=== PATIENT | female | born 1970 | race African-American/Black ===

== ENCOUNTER 2017-03-13 21:05 | Emergency (ER) | payer OTHER, MEDICAID ==
[~2017-03-13] VITALS: Ht 162.6 cm; Wt 108.9 kg
[~2017-03-13 21:05] MED LIST: ACETAMINOPHEN-1 EAC1 ORAL; ADULT WAL-100 MG/5 M ORAL; ALBUTEROL SULF8.5 GM INH; AMLODIPINE BESY10 MG ORAL; AMOXICILLIN500 M1 PO; AMOXICILLIN500 MG ORAL; ASPIR 8181 MG ORAL; ATENOLOL25 MG ORAL; AZITHROMYCIN250 MG ORAL; CEPHALEXIN500 MG ORAL; CIPROFLOXACIN500 M2 ORAL; COLACE100 MG ORAL; CYCLOBENZAPRINE10 MG ORAL; GABAPENTIN100 MG ORAL; HYDROCHLOROTH12.5 MG ORAL; HYDROCHLOROTHIA25 MG ORAL; IBUPROFEN600 MG ORAL; IBUPROFEN800 MG ORAL; METFORMIN HCL500 M1 ORAL; NAPROXEN SODIU550 M1 ORAL; NORCO 5-325 TA1 EACH ORAL; PHENAZOPYRIDIN200 MG ORAL; PREDNISONE20 MG ORAL; PROMETHAZINE-C118 M1 ORAL; ZYRTEC10 MG ORAL
[2017-03-13 21:40] VITALS: BP 141/86
[2017-03-13] MEDS ORDERED: Ketorolac 30mg Inj IV ONE (22:00)
--- NOTE | 2017-03-13 22:20 | Emergency Room Report ---
History of Present Illness General Chief Complaint: Vaginal Source: Patient Present Illness HPI This is a 47-year-old female with no significant past medical history. She came in with chief complaint of vaginal bleeding. Has been ongoing for last 3 weeks. She says she goes to a to 9 pads a day. No nausea vomiting. [place] tired weak. Similar symptoms but many years ago. Doesn't think she is . No abdominal pain. No urinary complaint. Has not seen a toy assembly supervisor. She is a smoker however. Allergies: Coded Allergies: No Known Allergies (Unverified , 01/26/14) Patient History Past Medical History: see triage record, old chart reviewed Past Surgical History: other Pertinent Family History: none Social History: Reports: smoking Last Menstrual Period: jan Now: No Immunizations: other Reviewed Nursing Documentation: PMH: Agreed, PSxH: Agreed Nursing Documentation-PMH Hx Cardiac Problems: Yes - IRREG HEART BEAT Hx Hypertension: Yes Hx Pacemaker: No Hx Asthma: Yes Hx COPD: Yes Hx Diabetes: Yes Hx Cancer: No Hx Gastrointestinal Problems: No Hx Dialysis: No Hx Neurological Problems: No Hx Cerebrovascular Accident: No Hx Seizures: No Review of Systems Eye: Denies: eye pain, blurred vision ENT: Denies: ear pain, nose congestion, throat swelling Respiratory: Denies: cough, shortness of breath Cardiovascular: Denies: chest pain, palpitations Gastrointestinal: Denies: abdominal pain, diarrhea, nausea, vomiting Genitourinary: Reports: vag bleed/dc Musculoskeletal: Denies: back pain, joint pain Skin: Denies: rash Neurological: Denies: headache, numbness Endocrine: Denies: increased thirst, increased urine Hematologic/Lymphatic: Denies: easy bruising All Other Systems: negative except mentioned in HPI Physical Exam Vital Signs Date Time Temp Pulse Resp B/P (MAP) Pulse Ox O2 Delivery O2 Flow Rate FiO2 03/13/17 21:35 98.1 92 16 141/86 98 Room Air vitals normal Sp02 EP Interpretation: reviewed, normal General Appearance: well appearing, no apparent distress, alert Head: normocephalic, atraumatic Eyes: bilateral eye PERRL, bilateral eye EOMI ENT: hearing grossly normal, normal pharynx Neck: full range of motion, supple, no meningismus Respiratory: chest non-tender, lungs clear, normal breath sounds Cardiovascular #1: regular rate, rhythm, no murmur Gastrointestinal: normal bowel sounds, non tender, no mass, no organomegaly, no bruit, non-distended Genitourinary: other - Pelvic exam done with LUCAS Higuera as car repairman. External exam normal. Internal exam showed scant bleeding from the os. Mild cervical motion tenderness. Uterus is slightly enlarged. No adnexal mass. No discharge. Musculoskeletal: back normal, gait/station normal, normal range of motion Neurologic: alert, oriented x3 Psychiatric: mood/affect normal Skin: warm/dry Medical Decision Making Diagnostic Impression: Primary Impression: Dysfunctional uterine bleeding ER Course Patient with dysfunctional uterine bleeding. Hemoglobin is stable compared to 2016. No evidence of anemia. We'll discharge home with DIRECTOR LIFE followup. Lab Results Impression labs stable Last Vital Signs Date Time Temp Pulse Resp B/P (MAP) Pulse Ox O2 Delivery O2 Flow Rate FiO2 03/13/17 21:35 98.1 92 16 141/86 98 Room Air Status: improved Disposition: HOME, SELF-CARE Condition: Improved Referrals: [facility] (PCP) Additional Instructions: Followup with your DrMagdy in 7 days. You may benefit from seeing a toy assembly supervisor. Return if symptom worsen. VANESSA ELENA M.D. Mar 13, 2017 22:20
--- NOTE | 2017-03-13 22:20 | Emergency Room Report ---
History of Present Illness General Chief Complaint: Vaginal Source: Patient Present Illness HPI This is a 47-year-old female with no significant past medical history. She came in with chief complaint of vaginal bleeding. Has been ongoing for last 3 weeks. She says she goes to a to 9 pads a day. No nausea vomiting. [place] tired weak. Similar symptoms but many years ago. Doesn't think she is . No abdominal pain. No urinary complaint. Has not seen a drafter commercial. She is a smoker however. Allergies: Coded Allergies: No Known Allergies (Unverified , 01/26/14) Patient History Past Medical History: see triage record, old chart reviewed Past Surgical History: other Pertinent Family History: none Social History: Reports: smoking Last Menstrual Period: jan Now: No Immunizations: other Reviewed Nursing Documentation: PMH: Agreed, PSxH: Agreed Nursing Documentation-PMH Hx Cardiac Problems: Yes - IRREG HEART BEAT Hx Hypertension: Yes Hx Pacemaker: No Hx Asthma: Yes Hx COPD: Yes Hx Diabetes: Yes Hx Cancer: No Hx Gastrointestinal Problems: No Hx Dialysis: No Hx Neurological Problems: No Hx Cerebrovascular Accident: No Hx Seizures: No Review of Systems Eye: Denies: eye pain, blurred vision ENT: Denies: ear pain, nose congestion, throat swelling Respiratory: Denies: cough, shortness of breath Cardiovascular: Denies: chest pain, palpitations Gastrointestinal: Denies: abdominal pain, diarrhea, nausea, vomiting Genitourinary: Reports: vag bleed/dc Musculoskeletal: Denies: back pain, joint pain Skin: Denies: rash Neurological: Denies: headache, numbness Endocrine: Denies: increased thirst, increased urine Hematologic/Lymphatic: Denies: easy bruising All Other Systems: negative except mentioned in HPI Physical Exam Vital Signs Date Time Temp Pulse Resp B/P (MAP) Pulse Ox O2 Delivery O2 Flow Rate FiO2 03/13/17 21:35 98.1 92 16 141/86 98 Room Air vitals normal Sp02 EP Interpretation: reviewed, normal General Appearance: well appearing, no apparent distress, alert Head: normocephalic, atraumatic Eyes: bilateral eye PERRL, bilateral eye EOMI ENT: hearing grossly normal, normal pharynx Neck: full range of motion, supple, no meningismus Respiratory: chest non-tender, lungs clear, normal breath sounds Cardiovascular #1: regular rate, rhythm, no murmur Gastrointestinal: normal bowel sounds, non tender, no mass, no organomegaly, no bruit, non-distended Genitourinary: other - Pelvic exam done with LUCAS Higuera as sport shoe spike assembler. External exam normal. Internal exam showed scant bleeding from the os. Mild cervical motion tenderness. Uterus is slightly enlarged. No adnexal mass. No discharge. Musculoskeletal: back normal, gait/station normal, normal range of motion Neurologic: alert, oriented x3 Psychiatric: mood/affect normal Skin: warm/dry Medical Decision Making Diagnostic Impression: Primary Impression: Dysfunctional uterine bleeding ER Course Patient with dysfunctional uterine bleeding. Hemoglobin is stable compared to 2016. No evidence of anemia. We'll discharge home with BARREL BRANDER followup. Lab Results Impression labs stable Last Vital Signs Date Time Temp Pulse Resp B/P (MAP) Pulse Ox O2 Delivery O2 Flow Rate FiO2 03/13/17 21:35 98.1 92 16 141/86 98 Room Air Status: improved Disposition: HOME, SELF-CARE Condition: Improved Referrals: [facility] (PCP) Additional Instructions: Followup with your DrMagdy in 7 days. You may benefit from seeing a drafter commercial. Return if symptom worsen. VANESSA ELENA M.D. Mar 13, 2017 22:20
--- NOTE | 2017-03-13 22:20 | Emergency Room Report ---
History of Present Illness General Chief Complaint: Vaginal Source: Patient Present Illness HPI This is a 47-year-old female with no significant past medical history. She came in with chief complaint of vaginal bleeding. Has been ongoing for last 3 weeks. She says she goes to a to 9 pads a day. No nausea vomiting. [place] tired weak. Similar symptoms but many years ago. Doesn't think she is . No abdominal pain. No urinary complaint. Has not seen a biodiesel processing technician. She is a smoker however. Allergies: Coded Allergies: No Known Allergies (Unverified , 01/26/14) Patient History Past Medical History: see triage record, old chart reviewed Past Surgical History: other Pertinent Family History: none Social History: Reports: smoking Last Menstrual Period: jan Now: No Immunizations: other Reviewed Nursing Documentation: PMH: Agreed, PSxH: Agreed Nursing Documentation-PMH Hx Cardiac Problems: Yes - IRREG HEART BEAT Hx Hypertension: Yes Hx Pacemaker: No Hx Asthma: Yes Hx COPD: Yes Hx Diabetes: Yes Hx Cancer: No Hx Gastrointestinal Problems: No Hx Dialysis: No Hx Neurological Problems: No Hx Cerebrovascular Accident: No Hx Seizures: No Review of Systems Eye: Denies: eye pain, blurred vision ENT: Denies: ear pain, nose congestion, throat swelling Respiratory: Denies: cough, shortness of breath Cardiovascular: Denies: chest pain, palpitations Gastrointestinal: Denies: abdominal pain, diarrhea, nausea, vomiting Genitourinary: Reports: vag bleed/dc Musculoskeletal: Denies: back pain, joint pain Skin: Denies: rash Neurological: Denies: headache, numbness Endocrine: Denies: increased thirst, increased urine Hematologic/Lymphatic: Denies: easy bruising All Other Systems: negative except mentioned in HPI Physical Exam Vital Signs Date Time Temp Pulse Resp B/P (MAP) Pulse Ox O2 Delivery O2 Flow Rate FiO2 03/13/17 21:35 98.1 92 16 141/86 98 Room Air vitals normal Sp02 EP Interpretation: reviewed, normal General Appearance: well appearing, no apparent distress, alert Head: normocephalic, atraumatic Eyes: bilateral eye PERRL, bilateral eye EOMI ENT: hearing grossly normal, normal pharynx Neck: full range of motion, supple, no meningismus Respiratory: chest non-tender, lungs clear, normal breath sounds Cardiovascular #1: regular rate, rhythm, no murmur Gastrointestinal: normal bowel sounds, non tender, no mass, no organomegaly, no bruit, non-distended Genitourinary: other - Pelvic exam done with LUCAS Higuera as build engineer. External exam normal. Internal exam showed scant bleeding from the os. Mild cervical motion tenderness. Uterus is slightly enlarged. No adnexal mass. No discharge. Musculoskeletal: back normal, gait/station normal, normal range of motion Neurologic: alert, oriented x3 Psychiatric: mood/affect normal Skin: warm/dry Medical Decision Making Diagnostic Impression: Primary Impression: Dysfunctional uterine bleeding ER Course Patient with dysfunctional uterine bleeding. Hemoglobin is stable compared to 2016. No evidence of anemia. We'll discharge home with DISTRICT FIRE CHIEF followup. Lab Results Impression labs stable Last Vital Signs Date Time Temp Pulse Resp B/P (MAP) Pulse Ox O2 Delivery O2 Flow Rate FiO2 03/13/17 21:35 98.1 92 16 141/86 98 Room Air Status: improved Disposition: HOME, SELF-CARE Condition: Improved Referrals: [facility] (PCP) Additional Instructions: Followup with your DrMagdy in 7 days. You may benefit from seeing a biodiesel processing technician. Return if symptom worsen. VANESSA ELENA M.D. Mar 13, 2017 22:20
[2017-03-13 22:45] LABS: BASOPHILS % (AUTO) 1.4 % (0.0-2.0); EOSINOPHILS % (AUTO) 6.5 % (0.0-3.0); HEMATOCRIT 38.9 % (37.0-47.0); HEMOGLOBIN 12.2 G/DL (12.0-16.0); LYMPHOCYTES % (AUTO) 41.2 % (20.0-45.0); MEAN CORPUSCULAR VOLUME 99 FL (80-99); MONOCYTES % (AUTO) 4.8 % (1.0-10.0); PLATELET COUNT 267 K/UL (150-450); RED BLOOD COUNT 3.95 M/UL (4.20-5.40); RED CELL DISTRIBUTION WIDTH 12.8 % (11.6-14.8); WHITE BLOOD COUNT 5.1 K/UL (4.8-10.8)
[2017-03-13 22:51] LABS: APPEARANCE,URINE CLEAR; BILIRUBIN, URINE NEGATIVE (NEGATIVE); GLUCOSE, URINE (UA) NEGATIVE (NEGATIVE); KETONES,URINE NEGATIVE (NEGATIVE); LEUKOCYTE ESTERASE ,URINE 1+ (NEGATIVE); NITRITE,URINE NEGATIVE (NEGATIVE); PH,URINE 6 (4.5-8.0); PROTEIN,URINE NEGATIVE (NEGATIVE); UROBILINOGEN,URINE 4 MG/DL (0.0-1.0)
[2017-03-13 22:53] LABS: COLOR,URINE YELLOW
[2017-03-13] MEDS ORDERED: Ketorolac 60mg Inj IM ONE (23:00)
[2017-03-13] MEDS ORDERED: IBUPROFEN600 MG ORAL (23:22)
[2017-03-13 23:28] VITALS: BP 128/82
[2017-03-13 23:29] VITALS: BP 128/82
== END 2017-03-13 23:30 | disposition home or self-care (01) ==
LOC: EMR 21:50
DX: N93.8 Other specified abnormal uterine and vaginal bleeding (principal); I10 Essential (primary) hypertension; E11.9 Type 2 diabetes mellitus without complications; J44.9 Chronic obstructive pulmonary disease, unspecified
CPT/HCPCS: 36415; 81003; 81025; 85025; 96372; 96374; 99284

== ENCOUNTER 2017-04-23 23:37 | Emergency (ER) | payer OTHER, MEDICAID ==
[~2017-04-23] VITALS: Ht 162.6 cm; Wt 90.7 kg
[2017-04-23] MEDS ORDERED: NKM (23:54)
[2017-04-24] VITALS: BP 122/79
[2017-04-24] MEDS ORDERED: REGLAN10 M1 ORAL (00:49)
[2017-04-24] MEDS ORDERED: TYLENOL325 MG ORAL (00:49)
[2017-04-24] MEDS ORDERED: Metoclopramide 10mg/10ml Liq ORAL ONE (01:00)
[2017-04-24 01:05] VITALS: BP 121/84
[2017-04-24 01:07] VITALS: BP 121/84
--- NOTE | 2017-04-24 04:06 | Emergency Room Report ---
History of Present Illness General Chief Complaint: Headache Source: Patient Present Illness HPI 47YOF with headache for 4 hours since waking up Patient works at night, slept all day Headache right sided, pressure in quality, 5/10 No assoc nausea/vomiting, fever/chills, neck pain/stiffness No known history of migraines Allergies: Coded Allergies: No Known Allergies (Unverified , 01/26/14) Patient History Past Medical History: none Past Surgical History: none Pertinent Family History: none Social History: Denies: smoking, alcohol use, drug use Last Menstrual Period: 03/19/17 Now: No : 8 Para: 6 Immunizations: UTD Reviewed Nursing Documentation: PMH: Agreed, PSxH: Agreed Nursing Documentation-PMH Hx Cardiac Problems: Yes - IRREG HEART BEAT Hx Hypertension: Yes Hx Pacemaker: No Hx Asthma: Yes Hx COPD: Yes Hx Diabetes: Yes Hx Cancer: No Hx Gastrointestinal Problems: No Hx Dialysis: No Hx Neurological Problems: No Hx Cerebrovascular Accident: No Hx Seizures: No Review of Systems All Other Systems: negative except mentioned in HPI Physical Exam Vital Signs Date Time Temp Pulse Resp B/P (MAP) Pulse Ox O2 Delivery O2 Flow Rate FiO2 04/23/17 23:51 97.3 90 14 122/79 98 Room Air Sp02 EP Interpretation: reviewed, normal General Appearance: normal inspection, well appearing, no apparent distress, alert, GCS 15, non-toxic Head: normocephalic, atraumatic Eyes: bilateral eye PERRL, bilateral eye EOMI ENT: normal ENT inspection, hearing grossly normal, normal pharynx, no angioedema, normal voice, TMs + canals normal, uvula midline, moist mucus membranes Neck: normal inspection, full range of motion, supple, thyroid normal, no meningismus, no bony tend Respiratory: normal inspection, lungs clear, normal breath sounds, no rhonchi, no respiratory distress, no retraction, no accessory muscle use, no wheezing, speaking full sentences Cardiovascular #1: regular rate, rhythm, no edema, no JVD, normal capillary refill Gastrointestinal: normal inspection, normal bowel sounds, non tender, soft, no mass, no peritonitis, non-distended, no guarding, no hernia, no pulsatile mass Genitourinary: no CVA tenderness Musculoskeletal: normal inspection, back normal, normal range of motion, no calf tenderness, pelvis stable, Jomar's Sign negative Neurologic: normal inspection, alert, oriented x3, responsive, pharmaceutical detailer III-XII nml as tested, motor strength/tone normal, cerebellar normal, normal gait, speech normal Psychiatric: normal inspection, judgement/insight normal, mood/affect normal, no suicidal/homicidal ideation, no delusions Skin: normal inspection, normal color, no rash Lymphatic: normal inspection, no adenopathy Medical Decision Making Diagnostic Impression: Primary Impression: Headache Qualified Codes: G44.209 - Tension-type headache, unspecified, not intractable ER Course Patient was likely tension headache when I examined the patient she was asleep and had to be awakened stated headache mostly resolved on its own while she was sleeping in ER vitals signs stable, afebrile Unlikely SAH or meningitis given well appearance, no focal neurological deficits , and resolution on its own ER course: Patient has remained stable during ED stay. Patient is to be discharged to home. Prescriptions given are reglan, tylenol Patient is instructed to follow up with their primary care doctor within 5 days. Patient is instructed to follow up with *specialist within 3 days. Strict return precautions discussed with patient such as fever, chills, worsening/severe pain, nausea, vomiting, which may indicate severe illness. Patient verbalizes understanding and agrees with plan. Please note that this Emergency Department Report was dictated using [employer] brander technology software, occasionally this can lead to erroneous entry secondary to interpretation by the dictation equipment Last Vital Signs Date Time Temp Pulse Resp B/P (MAP) Pulse Ox O2 Delivery O2 Flow Rate FiO2 04/24/17 01:07 97.3 84 14 121/84 98 Room Air Status: improved Disposition: HOME, SELF-CARE Condition: Improved Scripts Acetaminophen (Tylenol) 325 Mg Tablet 650 MG ORAL Q6H Y for Prn Pain/Headache/Temp > 101 for 7 Days, #30 TAB 0 Refills Prov: HANNAH PICKETT M.D. 04/24/17 Metoclopramide Hcl* (REGLAN*) 10 Mg Tablet 10 MG ORAL THREE TIMES A DAY for headache for 7 Days, #30 TAB Prov: HANNAH PICKETT M.D. 04/24/17 Referrals: [facility] (PCP) Departure Forms: Return to Work Return to Work Date: Apr 25, 2017 Patient Instructions: Tension Headache Additional Instructions: - take tylenol and reglan together as needed for headache HANNAH PICKETT M.D. Apr 24, 2017 04:06
== END 2017-04-24 01:07 | disposition home or self-care (01) ==
LOC: EMR 04-24 00:11
DX: R51 Headache (principal)
CPT/HCPCS: 99283

== ENCOUNTER 2017-06-10 19:46 | Emergency (ER) | payer OTHER, MEDICAID ==
[~2017-06-10] VITALS: Ht 165.1 cm; Wt 114.8 kg
[~2017-06-10 19:46] MED LIST changes: +NKM; +REGLAN10 M1 ORAL; +TYLENOL325 MG ORAL
[2017-06-10 20:32] VITALS: BP 150/88
[2017-06-10 20:57] LABS: APPEARANCE,URINE CLEAR; BILIRUBIN, URINE NEGATIVE (NEGATIVE); COLOR,URINE PALE YELLOW; GLUCOSE, URINE (UA) NEGATIVE (NEGATIVE); KETONES,URINE NEGATIVE (NEGATIVE); LEUKOCYTE ESTERASE ,URINE 1+ (NEGATIVE); NITRITE,URINE NEGATIVE (NEGATIVE); PH,URINE 7 (4.5-8.0); PROTEIN,URINE NEGATIVE (NEGATIVE); UROBILINOGEN,URINE NORMAL MG/DL (0.0-1.0)
[2017-06-10] MEDS ORDERED: BACTRIM DS TAB1 EAC1 ORAL (21:08)
[2017-06-10] MEDS ORDERED: IBUPROFEN600 MG ORAL (21:08)
[2017-06-10] MEDS ORDERED: NEOSPORIN ANT14.2 GM TP (21:08)
[2017-06-10 21:31] VITALS: BP 150/88
--- NOTE | 2017-06-13 07:52 | Emergency Room Report ---
History of Present Illness General Chief Complaint: Abdominal Pain Source: Patient Present Illness HPI Patient present with complaints of suprapubic lower abdominal pain Cramping sensation Patient also reports that she had some redness to the inside of her nose Denies any chest pain or shortness of breath denies any vomiting or diarrhea Was questionable flank discomfort as well Patient reports significant history of fibroids She has also had irregular menstrual cycles Allergies: Coded Allergies: No Known Allergies (Unverified , 01/26/14) Patient History Past Medical History: see triage record Pertinent Family History: none Last Menstrual Period: 05/20/17 Now: No Reviewed Nursing Documentation: PMH: Agreed, PSxH: Agreed Nursing Documentation-PMH Hx Cardiac Problems: Yes - IRREG HEART BEAT Hx Hypertension: Yes Hx Pacemaker: No Hx Asthma: Yes Hx COPD: Yes Hx Diabetes: Yes Hx Cancer: No Hx Gastrointestinal Problems: No Hx Dialysis: No Hx Neurological Problems: No Hx Cerebrovascular Accident: No Hx Seizures: No Review of Systems All Other Systems: negative except mentioned in HPI Physical Exam Vital Signs Date Time Temp Pulse Resp B/P (MAP) Pulse Ox O2 Delivery O2 Flow Rate FiO2 06/10/17 20:08 98.2 98 21 150/88 96 Room Air Sp02 EP Interpretation: reviewed, normal General Appearance: well appearing, no apparent distress Head: normocephalic, atraumatic Eyes: bilateral eye PERRL, bilateral eye EOMI ENT: hearing grossly normal, normal pharynx, TMs + canals normal, uvula midline , other - Mild erythema bilateral nasal nares Neck: full range of motion, supple, no meningismus, no bony tend Respiratory: lungs clear, normal breath sounds, no rhonchi, no respiratory distress, no retraction, no accessory muscle use Cardiovascular #1: normal peripheral pulses, regular rate, rhythm, no edema, no gallop, no JVD, no murmur Gastrointestinal: normal bowel sounds, non tender, soft, no mass, no organomegaly, non-distended, no guarding, no hernia, no pulsatile mass, no rebound Genitourinary: no CVA tenderness Musculoskeletal: normal inspection Neurologic: oriented x3, responsive, talent coordinator III-XII nml as tested, motor strength/ tone normal, sensory intact Psychiatric: mood/affect normal Skin: normal color, no rash, warm/dry, palpation normal Lymphatic: normal inspection, no adenopathy Medical Decision Making Diagnostic Impression: Primary Impression: uti Additional Impression: Abdominal pain ER Course With the patient's history and examination, multiple differentials considered, including but not limited to , ectopic , ovarian torsion, gastritis, cholecystitis, pancreatitis, appendicitis Patient's abdominal exam is fairly benign Urine sample showed questionable early UTI Negative Patient is placed on antibiotics but consideration for appendicitis is low and further imaging has not been obtained at this time Labs Test 06/10/17 20:21 Urine Color Pale yellow Urine Appearance Clear Urine pH 7 (4.5-8.0) Urine Specific [place] 1.015 (1.005-1.035) Urine Protein Negative (NEGATIVE) Urine Glucose (UA) Negative (NEGATIVE) Urine Ketones Negative (NEGATIVE) Urine Occult Blood Negative (NEGATIVE) Urine Nitrite Negative (NEGATIVE) Urine Bilirubin Negative (NEGATIVE) Urine Urobilinogen Normal MG/DL (0.0-1.0) Urine Leukocyte Esterase 1+ (NEGATIVE) Urine RBC 0-2 /HPF (0 - 2) Urine WBC 0-2 /HPF (0 - 2) Urine Squamous Epithelial Cells Few /LPF (NONE/OCC) Urine Amorphous Sediment Few /LPF (NONE) Urine Bacteria Few /HPF (NONE) Urine HCG, Qualitative Negative Last Vital Signs Date Time Temp Pulse Resp B/P (MAP) Pulse Ox O2 Delivery O2 Flow Rate FiO2 06/10/17 21:31 78 21 150/88 96 06/10/17 20:32 98.2 Room Air Disposition: HOME, SELF-CARE Condition: Improved Scripts Ibuprofen* (MOTRIN*) 600 Mg Tablet 600 MG ORAL Q8H Y for For Pain, #20 TAB 0 Refills Prov: CATHIE SCHWARZ.O. 06/10/17 Trimethoprim/Sulfamethoxazole 160/800* (BACTRIM DS TABLET*) 1 Each Tablet 1 TAB ORAL Q12H, #14 TAB 0 Refills Prov: CATHIE SCHWARZ.O. 06/10/17 Neomy Sulf/Bacitrac Zn/Poly (NEOSPORIN ANTIBIOTIC OINTMENT) 14.2 Gm Oint...g. 14.2 GM TP BID for 7 Days, GM Prov: CATHIE SCHWARZ.O. 06/10/17 Referrals: [facility] (PCP) Patient Instructions: Urinary Tract Infection, [id number], Abdominal Pain, Adult Additional Instructions: Patient is provided with the discharge instructions notified to follow up with primary doctor in the next 2-3 days otherwise return to the er with any worsening symptoms. Please note that this report is being documented using [employer] technology. This can lead to erroneous entry secondary to incorrect interpretation by the dictating instrument. CATHIE SCHWARZ D.O. Jun 13, 2017 07:52
== END 2017-06-10 21:40 | disposition home or self-care (01) ==
LOC: EMR 20:16
DX: N39.0 Urinary tract infection, site not specified (principal); R10.30 Lower abdominal pain, unspecified; I10 Essential (primary) hypertension; J44.9 Chronic obstructive pulmonary disease, unspecified
CPT/HCPCS: 81003; 81025; 99283

== ENCOUNTER 2017-06-24 02:01 | Emergency (ER) | payer OTHER, MEDICAID ==
[~2017-06-24] VITALS: Ht 162.6 cm; Wt 114.8 kg
[~2017-06-24 02:01] MED LIST changes: +BACTRIM DS TAB1 EAC1 ORAL; +NEOSPORIN ANT14.2 GM TP
[2017-06-24 02:33] VITALS: BP 150/91
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
[2017-06-24 03:15] VITALS: BP 150/91
== END 2017-06-24 03:15 | disposition home or self-care (01) ==
LOC: EMR 02:38
DX: R53.1 Weakness (principal); I10 Essential (primary) hypertension; E11.9 Type 2 diabetes mellitus without complications; J44.9 Chronic obstructive pulmonary disease, unspecified
CPT/HCPCS: 80307; 99284

== ENCOUNTER 2018-03-03 19:30 | Emergency (ER) | payer MEDICAID, OTHER ==
[~2018-03-03] VITALS: Ht 162.6 cm; Wt 104.3 kg
[2018-03-03 19:34] VITALS: BP 149/84
[2018-03-03] MEDS ORDERED: Ketorolac 30mg Inj IM ONE (20:00)
[2018-03-03] MEDS ORDERED: EXCEDRIN MIGRA1 EAC1 PO (20:02)
--- NOTE | 2018-03-03 20:02 | Emergency Room Report ---
History of Present Illness General Chief Complaint: Headache Source: Patient, Medical Record Present Illness HPI 48-year-old female patient presents ER complaining of headache for the past week. Patient reports that headache is over the front of her head. Reports intermittent. Reports history of similar headaches in the past, denies worse headache of life. Denies vomiting or vision changes. Contrary triage note does not report dizziness. Denies neck pain. Denies fever, chest pain, shortness of breath. Reports she "sometimes gets headaches" when her blood pressure is not controlled" states it is currently well-controlled. Denies chest pain or shortness of breath. Denies history of CT. Denies dysuria, hematuria. patient reports a lot of stressors at home and work. Reports that her daughter just moved in with her daughters new baby. Denies hx of anxiety disorder. Denies thoughts of hurting herself or others. Denies injury or trauma. Allergies: Coded Allergies: No Known Allergies (Unverified , 03/03/18) Patient History Past Medical History: see triage record Last Menstrual Period: jan 2018 Reviewed Nursing Documentation: PMH: Agreed; PSxH: Agreed Nursing Documentation-PMH Past Medical History: No History, Except For Hx Cardiac Problems: Yes - IRREG HEART BEAT Hx Hypertension: Yes Hx Pacemaker: No Hx Asthma: Yes Hx COPD: No Hx Diabetes: Yes Hx Cancer: No Hx Gastrointestinal Problems: No Hx Dialysis: No Hx Neurological Problems: No Hx Cerebrovascular Accident: No Hx Seizures: No Review of Systems All Other Systems: negative except mentioned in HPI Physical Exam Vital Signs Date Time Temp Pulse Resp B/P (MAP) Pulse Ox O2 Delivery O2 Flow Rate FiO2 03/03/18 19:34 98.2 88 15 149/84 97 Room Air Sp02 EP Interpretation: reviewed, normal General Appearance: well appearing, no apparent distress, alert, GCS 15, non- toxic Head: normocephalic, atraumatic Eyes: bilateral eye normal inspection, bilateral eye PERRL ENT: hearing grossly normal, normal pharynx, no angioedema, normal voice, uvula midline, moist mucus membranes Neck: full range of motion Respiratory: lungs clear, normal breath sounds, no rhonchi, no respiratory distress, no accessory muscle use, no wheezing, speaking full sentences Cardiovascular #1: regular rate, rhythm, no edema Musculoskeletal: back normal, digits/nails normal, gait/station normal, normal range of motion, non-tender Neurologic: alert, oriented x3, responsive, pediatric nurse practitioner III-XII nml as tested, motor strength/tone normal, SLR negative, sensory intact, cerebellar normal, normal gait, speech normal, other - negative Kernig, negative Brudzinski Psychiatric: mood/affect normal Skin: no rash Lymphatic: no adenopathy Medical Decision Making PA Attestation Dr. Eng is my supervising Physician whom patient management has been discussed with. Diagnostic Impression: Primary Impression: Headache ER Course Pt presents to ED c/o headache. DDX considered but are not limited to migraine, cluster STEVENS, tension STEVENS, meningitis, ICH, meningitis, HTN. negative Kernig, negative Brudzinski, patient is afebrile, nontoxic-appearing, low suspicion for this. VITAL SIGNS are WNL, patient is afebrile ER COURSE Metoclopramide, Benadryl, and Toradol. no focal neuro deficits, cranial nerves intact as tested, low suspicion for ICH , does not require CT had at this time. informed patient to continue to monitor blood pressure and take medications as instructed. Follow-up with physician to discuss. discuss referral neurology further treatment of headaches due to history of headache. Will provide patient with medication. ER precautions given. Avoid stressors at home. Discuss need to avoid stressors,may exacerbate headache symptoms. Patient reports pain improved. Patient is AOx3, neurologically intact, nontoxic appearing, and ambulatory. DISCHARGE: -Rx provided Excedrin migraine At this time pt is stable for d/c to home. Patient is resting comfortably, in no acute distress, nontoxic appearing, talking and smiling. Will provide with patient care instructions and any necessary prescriptions. Patient to take medication as instructed. Care plan and follow-up instructions provided. Patient questions asked and answered. Patient instructed to follow-up with primary care provider in the next 3 days and discuss further referral with PCP to neurologist. ER precautions given. Patient instructed to return to ER immediately for any new or worsening of symptoms including but not limited to fever, neck stiffness , vision changes, and neurological symptoms. - Please note that this Emergency Department Report was dictated using [employer] technology software, occasionally this can lead to erroneous entry secondary to interpretation by the dictation equipment. Last Vital Signs Date Time Temp Pulse Resp B/P (MAP) Pulse Ox O2 Delivery O2 Flow Rate FiO2 10/30/18 19:34 98.2 91 15 149/84 97 Room Air Status: improved Disposition: HOME, SELF-CARE Condition: Stable Scripts Aspirin/Acetaminophen/Caffeine (EXCEDRIN MIGRAINE CAPLET) 1 Each Tablet 1 EACH PO TID, #30 TAB Prov: Leon Covington 03/03/18 Patient Instructions: General Headache Without Cause Additional Instructions: Followup with primary care provider in 3 -5 days. Discuss referral to neurology for STEVENS evaluation and treatment. Take medications as directed. Patient questions asked and answered. ER precautions given, patient instructed to return to ER immediately for any new or worsening of symptoms. Leon Covington Mar 03, 2018 20:02
[2018-03-03 20:27] VITALS: BP 149/84
== END 2018-03-03 20:40 | disposition home or self-care (01) ==
LOC: EMR 20:01
DX: R51 Headache (principal); I10 Essential (primary) hypertension; J45.909 Unspecified asthma, uncomplicated; E11.9 Type 2 diabetes mellitus without complications
CPT/HCPCS: 96372; 99283; J1885